=== PATIENT | female | born 1990 | race African-American/Black ===

== ENCOUNTER 2018-01-13 07:33 | Emergency (ER) | payer MEDICAID, OTHER ==
[~2018-01-13] VITALS: Ht 172.7 cm; Wt 56.5 kg
[~2018-01-13 07:33] MED LIST: AMOX500T PO; CEPH500C3 PO; SULF-154 PO; TRAM50 PO
[2018-01-13 07:37] VITALS: BP 123/59; PULSE 77; RESP 18; TEMP 98.2; O2SAT 100
[2018-01-13] MEDS ORDERED: PENI500T PO (07:56)
[2018-01-13] MEDS ORDERED: MAGICADU2 SWISH-SWAL (07:56)
--- NOTE | 2018-01-13 07:56 | PD ---
HPI Chief Complaint: Oral / Dental Pain or Problem Time Seen by Provider: 07:46 Travel History International Travel<30 days: No Contact w/Intl Traveler<30days: No Traveled to known affect area: No History of Present Illness HPI 27-year-old female presents the ED for evaluation 24 hour history of right lower jaw dental pain. Gradual onset. Quality throbbing. Rated 10/10 maximally, somewhat improved by Tylenol. No alleviating factors reported. Patient reports broken tooth in the area. She states the pain radiates towards the ear and down into the neck. She reports sore throat. She denies headache, hearing difficulties, ear pain. She states that she has a dentist but cannot be seen for 3 months. She treated at home with Tylenol with some improvement of symptoms. Denies risk of . States LMP "earlier this month." PFSH Past Medical History ?: Not : 2 Para: 2 Dilation and Curettage (D&C): Yes Social History Alcohol Use: No Tobacco Use: No Substance Use: No Allergies-Medications (Allergen,Severity, Reaction): Coded Allergies: aspirin (Unverified Allergy, Severe, SOB-SWELLING, 03/14/17) ibuprofen (Unverified Allergy, Intermediate, Rash, 03/14/17) Reported Meds & Prescriptions Reported Meds & Active Scripts Active Magic Mouthwash Adult Liq (Multi-Ingredient Mouthwash/Gargle) 120 Ml Susp 5 Ml SWISH-SWAL ACHS Each 5mL contains: Nystatin 200,000units, Diphenhydramine 4.25mg, Viscous Lidocaine 10mg, Drew syrup 0.8 mL Penicillin V Potassium 500 Mg Tab 500 Mg PO Q6H 7 Days Septra Ds (Trimethoprim/Sulfamethoxazole) Tab 1 Tab PO BID Keflex (Cephalexin Monohydrate) 500 Mg Cap 500 Mg PO BID Ultram (Tramadol HCl) 50 Mg Tab 50-100 Mg PO Q6 PRN FOR PAIN Amoxicillin 500 Mg Cap 500 Mg PO TID Review of Systems Except as stated in HPI: all other systems reviewed are Neg Physical Exam Narrative GENERAL: Well-nourished, well-developed nontoxic-appearing -[place] female no acute distress. SKIN: Warm and dry. HEAD: Normocephalic. Atraumatic. EYES: No scleral icterus. No injection or drainage. PERRLA. EOMI. ENT: Pearly daly tympanic membranes bilaterally. Nasal mucosa is moist. Oropharynx without erythema, edema or exudate. Uvula midline. Airway patent. DENTAL: No loose or chipped teeth. No malocclusion. Tooth #32 has a large dental caries to the gumline. Tooth is tender to tapping. No drainable abscess. NECK: Supple, trachea midline. No JVD or lymphadenopathy. CARDIOVASCULAR: Regular rate and rhythm without murmurs, gallops, or rubs. RESPIRATORY: Breath sounds clear and equal bilaterally. No accessory muscle use. GASTROINTESTINAL: Abdomen soft, non-tender, nondistended. MUSCULOSKELETAL: No cyanosis, or edema. Walks with a normal gait. BACK: Nontender without obvious deformity. No CVA tenderness. Data Data Last Documented VS Vital Signs Date Time Temp Pulse Resp B/P (MAP) Pulse Ox O2 Delivery O2 Flow Rate FiO2 01/13/18 07:37 98.2 77 18 123/59 (80) 100 Orders Orders Ed Discharge Order (01/13/18 07:56) [facility] Medical Decision Making Medical Screen Exam Complete: Yes Emergency Medical Condition: Yes Differential Diagnosis Dental caries versus dental abscess versus dental fracture versus other Narrative Course 27-year-old female presents the ED for evaluation 24 hour history of right lower jaw dental pain. Reports broken tooth in the area. She is afebrile on presentation. On exam tooth #32 has a large dental caries to the gumline. No evidence of abscess. Patient's prescribed Penicillin VK 500 mg 4 times daily 7 days and a short course of Magic mouthwash. She is instructed to continue with OTC medications as described on the label, follow up with the dentist, return if symptoms worsen. She indicated understanding of instructions and is agreeable to care plan. The patient is stable and discharged home. Diagnosis Primary Impression: Dentalgia Additional Impression: Dental caries Referrals: Dentist Additional Instructions: Rest, hydrate. Begin antibiotics today and take them until every pill is gone. Continue with extra strength Tylenol as described on the label, as needed for pain. Magic mouthwash a few times a day, gargle and spit, to reduce pain. Warm salt water gargles may also help to improve your pain. Follow-up with the dentist. Return to the ED for worsening symptoms or any urgent or emergent medical condition. Med/Other Pt SpecificInfo: Prescription(s) given Scripts Bsaonmzy-Pzysvnmwphqinms-Iysaqetsw Liq (Magic Mouthwash Adult Liq) 120 Ml Susp 5 ML SWISH-SWAL ACHS for Mouth sores, #120 ML 0 Refills Each 5mL contains: Nystatin 200,000units, Diphenhydramine 4.25mg, Viscous Lidocaine 10mg, Drew syrup 0.8 mL Prov: Toby Jean Baptiste MD 01/13/18 Penicillin V Potassium (Penicillin V Potassium) 500 Mg Tab 500 MG PO Q6H for Infection for 7 Days, #28 TAB 0 Refills Prov: Toby Jean Baptiste MD 01/13/18 Disposition: 01 DISCHARGE HOME Condition: Stable Genny Burnham Jan 13, 2018 07:56
== END 2018-01-13 08:13 | disposition home or self-care (01) ==
LOC: NEPD 07:33
DX: K08.89 Other specified disorders of teeth and supporting structures (principal); K02.9 Dental caries, unspecified; J02.9 Acute pharyngitis, unspecified; S02.5XXA Fracture of tooth (traumatic), initial encounter for closed fracture; X58.XXXA Exposure to other specified factors, initial encounter
CPT/HCPCS: 99283